=== PATIENT | female | born 2000 | race Caucasian/White ===

== ENCOUNTER 2024-05-17 13:30 | Emergency (ER) | payer MEDICAID ==
[~2024-05-17] VITALS: Ht 160 cm; Wt 59.0 kg
[2024-05-17 13:31] VITALS: BP 108/64; PULSE 65; RESP 16; TEMP 36.7; O2SAT 100
[2024-05-17 15:57] VITALS: TEMP 98
[2024-05-17] MEDS: SODIUM CHLORIDE 0.9% 1,000 ML IV ONE (15:57)
[2024-05-17] MEDS: ACETAMINOPHEN 325MG TABLET PO ONE (15:57)
[2024-05-17 16:32] LABS: BASOPHILS % 0.4 % (0.0-2.0); EOSINOPHILS % 1.6 % (0.0-5.0); HEMATOCRIT. 37.4 % (36.0-48.0); HEMOGLOBIN. 11.9 g/dL (12.0-16.0); LYMPHOCYTES % 8.9 % (20.0-50.0); MEAN CORPUSCULAR HEMOGLOBIN 26.7 pg (28.0-32.0); MEAN CORPUSCULAR HGB CONC 31.9 g/dL (31.0-37.0); MEAN CORPUSCULAR VOLUME 83.6 fL (81.0-99.0); MEAN PLATELET VOLUME 9.5 fl (7.4-10.4); MONOCYTES % 6.8 % (2.0-8.0); NEUTROPHILS % 82.3 % (40.0-76.0); PLATELET 315 x1000/uL (130-400); RED BLOOD CELL COUNT 4.47 mill/uL (4.2-5.4); RED CELL DISTRIBUTION WIDTH 15.9 % (11.6-14.6); WHITE BLOOD COUNT 7.4 x1000/uL (4.5-11.0)
[2024-05-17 16:42] LABS: PARTIAL THROMBOPLASTIN TIME 24.2 sec (23.4-31.0); PROTHROMBIN TIME 11.1 sec (9.6-11.0)
[2024-05-17 16:50] LABS: CHLORIDE 103 mEq/L (98-107); POTASSIUM 3.6 mEq/L (3.5-5.1); SODIUM 141 mEq/L (136-145)
[2024-05-17 16:51] LABS: CARBON DIOXIDE 27 mEq/L (21-32)
[2024-05-17 16:52] LABS: CALCIUM 9.3 mg/dL (8.7-10.4)
[2024-05-17 16:55] LABS: HCG SCREEN NEGATIVE
[2024-05-17 16:56] LABS: CREATININE 0.6 mg/dL (0.6-1.0); GLUCOSE 91 mg/dL (70-105)
[2024-05-17 16:57] LABS: UREA NITROGEN BLOOD 9 mg/dL (9-23)
[2024-05-17 16:58] LABS: ALANINE AMINOTRANSFERASE 9 IU/L (10-49); ALBUMIN 4.2 g/dL (3.2-4.8); ASPARTATE AMINOTRANSFERASE 17 IU/L (<34)
[2024-05-17 16:59] LABS: BILIRUBIN TOTAL 0.4 mg/dL (0.1-1.0); PROTEIN TOTAL 7.7 g/dL (6.0-8.3)
== END 2024-05-17 17:32 | disposition home or self-care (01) ==
LOC: ER 13:30 → EDBEDREQ 15:39 → ER 17:32
DX: R55 Syncope and collapse (principal); K62.5 Hemorrhage of anus and rectum
CPT/HCPCS: 80053; 81025; 84703; 83605; 83735; 85025; 85610; 85730; 86850; 86900; 86901; 36415; 93005; 96360; 99284; J7030; Z7610 ×2